=== PATIENT | female | born 1995 | race Caucasian/White ===

== ENCOUNTER 2017-07-31 16:40 | Emergency (ER) | payer OTHER ==
[~2017-07-31] VITALS: Ht 162.6 cm; Wt 77.3 kg
[2017-07-31 16:44] VITALS: BP 128/86; TEMP 97
[2017-07-31] MEDS ORDERED: BIRTH CONTROL (17:14)
[2017-07-31] MEDS ORDERED: NORCO 325 MG-51 TAB PO (17:53)
[2017-07-31] MEDS ORDERED: ZOFRAN ODT4 MG PO (18:40)
[2017-07-31 18:49] VITALS: PULSE 74
== END 2017-07-31 18:50 | disposition home or self-care (01) ==
LOC: COL.ER 16:40
DX: S06.0X0A Concussion without loss of consciousness, initial encounter (principal); S01.01XA Laceration without foreign body of scalp, initial encounter; S50.812A Abrasion of left forearm, initial encounter; S40.212A Abrasion of left shoulder, initial encounter; Z23 Encounter for immunization; V89.2XXA Person injured in unspecified motor-vehicle accident, traffic, initial encounter